=== PATIENT | female | born 1985 | race Caucasian/White ===

== ENCOUNTER 2017-01-28 06:12 | Inpatient (IN) | payer OTHER ==
[2017-01-28] VITALS (16 sets, daily range): BP systolic 113–137; BP diastolic 57–86
[~2017-01-28] VITALS: Ht 167.6 cm; Wt 99.0 kg
[2017-01-28] MEDS ORDERED: PRENTAB9 PO (07:15)
[2017-01-28] MEDS ORDERED: ZYRT10CA PO (07:15)
[2017-01-28 07:23] LABS: MEAN CORPUSCULAR HEMOGLOBIN 33.2 pg (27.0-33.0); MEAN CORPUSCULAR VOLUME 94.9 fl (80.0-96.0); RED CELL DISTRIBUTION WIDTH 13.3 % (11.5-14.5); WHITE BLOOD COUNT 9.2 K/mm3 (4.0-10.0)
[2017-01-28] MEDS ORDERED: miSOPROStol 25 MCG 1/4 TAB (S0191) PV ONE (09:15)
--- NOTE | 2017-01-28 09:37 | HPEPDOC ---
Obstetrical History & Physical General Date of Admission Jan 28, 2017 at 06:12 History of Present Illness 31 yo G1 presents to L&D @ 41+0 for scheduled IOL d/t pending post-dates. Denies DFM, LOF, CTX and VB. GBS-negative from [id number]. Chief Complaint: Induction of labor Information Provided By: Patient Age: 31 : 1 Term: 0 Pre-term: 0 Abortions: 0 Livin Care Care: Good Care Number of Visits: 16 Dating Final EDC: Jan 21, 2017 Final EDC for Daily Update: Jan 21, 2017 Final EDC by: LMP LMP: Apr 16, 2016 1st Trimester Date: Jun 23, 2016 Weeks + Days: 9.5 Estimated Date of Confinement: Jan 21, 2017 EGA at Admission: 41.0 Antepartum Course Diagnos(e)s 1. Rh negative- Rhogam given 27OCT2016 2. Transfer in @ 37 wks 3. 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 Past Medical History Medical History DENIES Surgical History: [place] teeth (2010) Family History Significant Family History: No pertinent family hx Social History Marital Status: Family situation: Spouse/partner home Psychosocial History: No pertinent psych hx * Smoker: non-smoker Alcohol: Denies Drugs: denies Abuse Violence Screening Have you been hit/kicked/slapp: No Have you been sexually assault: No Imunizations Tdap status: current ([id number]) Allergies Coded Allergies: Cefaclor (Verified Allergy, Mild, 01/28/17) RASH ENVIROMENTAL (Verified Allergy, Unknown, 01/28/17) pet hair & grass Medications Scheduled Cetirizine HCl (Zyrtec Allergy) 10 Mg Cap, 10 MG PO DAILY Multivitamins/ ( 27-0.8 mg) 1 Tab Tab, 1 TAB PO DAILY Physical Examination Physical Examination GENERAL: A&O x 3 BREAST: Gravid ABDOMEN: Gravid and non-tender to touch FETUS: VTX by [place] and SVE and US [id number] HEART RATE: RRR, no m/r/g LUNGS: CTA EXTREMITIES: No edema. No clonus. DTRs +1 EFW- 3900 grams SVE- closed/thick/high Laboratory Data 24H LABS Laboratory Tests 2 01/28/17 06:17: Serology Scanned Report Hepatitis B Testing 01/28/17 07:06: CBC/BMP Laboratory Tests 01/28/17 07:06 Red Blood Count 3.85 L, Mean Corpuscular Volume 94.9, Mean Corpuscular Hemoglobin 33.2 H, Mean Corpuscular Hemoglobin Concent 35.0, Red Cell Distribution Width 13.3 Pertinent Laboratoy Data Blood Type: O- RBC Antibody Screen: Positive HIV: Negative Hepatitis B: Negative Hepatitis C: Negative Rapid Plasma Reagin: Nonreactive Rubella: Immune Chlamydia/Gonorrhea: Negative Group B Streptococcus: Negative Glucose Tolerance Test: 101 Anatomy Ultrasound Ultrasound Date: Sep 03, 2016 Placenta Location: Posterior Normal Anatomy: Yes Placenta Previa: Yes Estimated Weight (grams): 353 Other Ultrasounds 08OCT2016 - Assessment of placenta previq- Placenta 1.2 cm from os. 900 grams/ 67% Steroid Therapy Steroid Therapy: No Vaginal Examination Dilation: None Effacement: 0-30% Station: -3 Cervical Consistency: Firm Cervical Position: Posterior Presentation: Cephalic presentation Assessment Heart Rate (FHR): 130 Variability: Moderate Accelerations: Positive Decelerations: None Tocometer Contractions: No Strength: resting tone palp/soft Multi-drug resistant Organism: No history of MDRO Assessment/Plan Assessment 31 yo G1 presents to L&D @ 41+0, unfavorable cervix, CAT I FHR tracing. GBS negative. Plan Admit and orient. Worm Picker and consent. Diet: regular GBS negative IV and labs per unit protocol. Counseled on Pitocin and induction of labor Counseled on cervical ripening LR 1000 ml bolus, then 125 ml/hr once in active labor or prior to epidural placement Anticipate C-S as appropriate. MARIA DEL CARMEN BOYER CNM Jan 28, 2017 09:37
--- NOTE | 2017-01-28 11:27 | IPNPDOC ---
Text Note Date of Service The patient was seen on 01/28/17. NOTE [id number] @ 1124 31 yo G1 @ 41+0 here for IOL. S: resting in bed on her right side. Comfortable. Spouse is at bedside O: VS- WNL, afebrile FHR- 135, moderate, + accels, no decels CTX- irregular > 8 min apart(pt is not feeling) SVE- closed/thick/-3 25 mcg cytotec placed A: 31 you G1 @ 41+0. CAT I FHR tracing, no cervical change P: continue to monitor and assess, reassess in 4 hours or prn, CFM for the next 60 min, then per policy VS,Fishbone, I+O VS, Fishbone, I+O Laboratory Tests 01/28/17 07:06 Red Blood Count 3.85 L, Mean Corpuscular Volume 94.9, Mean Corpuscular Hemoglobin 33.2 H, Mean Corpuscular Hemoglobin Concent 35.0, Red Cell Distribution Width 13.3 Vital Signs Date Time Temp Pulse Resp B/P (MAP) Pulse Ox O2 Delivery O2 Flow Rate FiO2 01/28/17 09:19 98.6 62 18 119/74 (89) MARIA DEL CARMEN BOYER CNM Jan 28, 2017 11:27
--- NOTE | 2017-01-28 12:09 | REP ---
LIMITED OB ULTRASOUND: Limited OB ultrasound performed utilizing transabdominal and endovaginal technique. There is a single living intrauterine gestation. Estimated gestational age is unknown. There are no prior studies for comparison. heart rate of intrauterine fetus is 126 beats per minute. The amniotic fluid appears within normal limits with SADI 19.8. S/D ratio 2.04. RI 0.51. position is vertex. Transvaginal images shows cervical length 5.5 cm. There is no funneling. Placenta is posterior with no previa or abruption. IMPRESSION: Normal cervical length 5.5 cm with no placenta previa. Signed by Pa Cristobal MD 01/28/2017 05:55 P
[2017-01-28] MEDS ORDERED: OXYTOCIN 30 UNITS IN 0.9% NaCl 500ML IV BAG (J2590) As Ordered ONE (16:41)
--- NOTE | 2017-01-28 16:44 | IPNPDOC ---
Text Note Date of Service The patient was seen on 01/28/17. NOTE [id number] @ 1639 31 yo G1 @ 41+0 here for IOL. S: resting in bed on her left side. Comfortable, but feeling CTXs. Spouse is at bedside O: VS- WNL, afebrile FHR- 135, moderate, + accels, no decels CTX- Q 3-5 min, lasting < 90 sec, palpated as mild, SVE- fingertip(ext os, internal os unkn)/thick/-3, ant/firm/vtx Attempted to place cook balloon, unsuccessful A: 31 you G1 @ 41+0. CAT I FHR tracing, minimal cervical change P: continue to monitor and assess, reassess in 2 hours or prn, initiate pitocin IOL, titrate pitocin per unit protocol, reg diet prior to initiating pitocin VS,Fishbone, I+O VS, Fishbone, I+O Laboratory Tests 01/28/17 07:06 Red Blood Count 3.85 L, Mean Corpuscular Volume 94.9, Mean Corpuscular Hemoglobin 33.2 H, Mean Corpuscular Hemoglobin Concent 35.0, Red Cell Distribution Width 13.3 Vital Signs Date Time Temp Pulse Resp B/P (MAP) Pulse Ox O2 Delivery O2 Flow Rate FiO2 01/28/17 14:34 98.5 66 18 119/67 (84) MARIA DEL CARMEN BOYER CNM Jan 28, 2017 16:43
[2017-01-28] MEDS ORDERED: OXYTOCIN DRIP 30 UNITS in APPROPRIATE DILUENT 1 EA IV SCH (17:30)
--- NOTE | 2017-01-28 20:50 | IPNPDOC ---
Text Note Date of Service The patient was seen on 01/28/17. NOTE SBAR from SPENCER Durán at 1930. Chart reviewed. SROM at 1900,clr. NST Cat 1, pit at 6 mu/min, reg ctx's but not in signif pain yet Cx /-2/vtx well applied doing well, recheck in ~4 hrs,sooner prn. Sessions VS,Frank, I+O VSFrank I+O Laboratory Tests 01/28/17 07:06 Red Blood Count 3.85 L, Mean Corpuscular Volume 94.9, Mean Corpuscular Hemoglobin 33.2 H, Mean Corpuscular Hemoglobin Concent 35.0, Red Cell Distribution Width 13.3 Vital Signs Date Time Temp Pulse Resp B/P (MAP) Pulse Ox O2 Delivery O2 Flow Rate FiO2 01/28/17 17:38 99.8 18 01/28/17 17:22 65 123/77 (92) SESSIONS,CHASTITY Butcher MD Jan 28, 2017 20:50
[2017-01-29] VITALS (40 sets, daily range): BP systolic 102–145; BP diastolic 55–92
--- NOTE | 2017-01-29 01:22 | IPNPDOC ---
Text Note Date of Service The patient was seen on 01/29/17. NOTE Pain 10/12 Pit at 14mu/min NST Cat 1,reg ctx's Cx unchanged Plan on IUPC at next check in ~4 hrs if no signif change, cont pitocin Sessions VS,Frank, I+O VS, Frank I+O Laboratory Tests 01/28/17 07:06 Red Blood Count 3.85 L, Mean Corpuscular Volume 94.9, Mean Corpuscular Hemoglobin 33.2 H, Mean Corpuscular Hemoglobin Concent 35.0, Red Cell Distribution Width 13.3 Vital Signs Date Time Temp Pulse Resp B/P (MAP) Pulse Ox O2 Delivery O2 Flow Rate FiO2 01/28/17 22:08 63 18 116/66 (83) 01/28/17 17:38 99.8 I&O- Last 24 Hours up to 6 AM 01/29/17 06:00 Output Total 500 ml Balance -500 ml SESSIONS,CHASTITY Butcher MD Jan 29, 2017 01:22
[2017-01-29] MEDS ORDERED: ONDANSETRON 4MG/2ML VIAL (J2405) IV PRN ×4 (04:15→18:15)
--- NOTE | 2017-01-29 06:20 | IPNPDOC ---
Text Note Date of Service The patient was seen on 01/29/17. NOTE NST Cat 1, rare Cat2 (decr'd randi and a few early decels), reg painful ctx's, feeling pressure Cx 3-4/90/-1/vtx well applied Pit at 16 mu/min Doing well. Almost active labor. SBAR to Dr Mckeon at 0730. Sessions VSFrank, I+O VSFrank I+O Laboratory Tests 01/28/17 07:06 Red Blood Count 3.85 L, Mean Corpuscular Volume 94.9, Mean Corpuscular Hemoglobin 33.2 H, Mean Corpuscular Hemoglobin Concent 35.0, Red Cell Distribution Width 13.3 Vital Signs Date Time Temp Pulse Resp B/P (MAP) Pulse Ox O2 Delivery O2 Flow Rate FiO2 01/28/17 22:08 63 18 116/66 (83) 01/28/17 17:38 99.8 I&O- Last 24 Hours up to 6 AM 01/29/17 06:00 Output Total 1050 ml Balance -1050 ml SESSIONS,CHASTITY Butcher MD Jan 29, 2017 06:20
[2017-01-29] MEDS ORDERED: FENTANYL 2MCG/ML ROPIVACAINE 0.2% IN 0.9% NACL 200ML IVBAG As Ordered ONE (07:12)
[2017-01-29] MEDS ORDERED: NALOXONE INJ 0.4 MG/1 ML VIAL (J2310) IV PRN (08:45)
[2017-01-29] MEDS: FENTANYL/ROPIVACAINE/NACL BAG 200 ML EPIDURAL SCH (08:45)
[2017-01-29] MEDS ORDERED: LACTATED RINGER'S 1000 ML IV PRN (08:45)
[2017-01-29] MEDS ORDERED: EPIDURAL/PCA KEYS XX PRN (08:45)
[2017-01-29] MEDS ORDERED: EPIDURAL COMMENT XX SCH (08:45)
[2017-01-29] MEDS ORDERED: diphenhydrAMINE INJ 50MG/ML VIAL (J1200) IV PRN (08:45)
[2017-01-29] MEDS ORDERED: ePHEDrine SULFATE 25 MG/5 ML(5MG/ML) SYRINGE IV PRN (08:45)
[2017-01-29] MEDS ORDERED: REFRIGERATOR IV KEYS XX PRN (08:45)
[2017-01-29] MEDS: LR 1,000 ML IV SCH ×4 (10:01→20:39)
[2017-01-29] MEDS ORDERED: ACETAMINOPHEN 500 MG TAB PO PRN (10:15)
[2017-01-29 15:27] LABS: MEAN CORPUSCULAR HEMOGLOBIN 33.1 pg (27.0-33.0); MEAN CORPUSCULAR HGB CONC 34.9 g/dl (32.0-36.5); MEAN CORPUSCULAR VOLUME 94.9 fl (80.0-96.0); RED CELL DISTRIBUTION WIDTH 13.3 % (11.5-14.5); WHITE BLOOD COUNT 23.5 K/mm3 (4.0-10.0)
[2017-01-29] MEDS ORDERED: AZITHROMYCIN INJ 500MG VIAL (J0456) As Ordered ONE (15:59)
[2017-01-29] MEDS ORDERED: AZITHROMYCIN INJ 500 MG, VIAL MATE ADAPTER 1 EACH in D5W 250 ML IV ONE (16:00)
[2017-01-29] MEDS ORDERED: BICITRA 30ML SOLN UDC PO ONE (16:00)
[2017-01-29] MEDS ORDERED: CLINDAMYCIN 900 MG/50 ML PREMIX BAG As Ordered ONE (16:06)
[2017-01-29] MEDS ORDERED: LIDOCAINE 2% W/EPIN INJ 20ML **PRES FREE As Ordered ONE ×2 (16:09→16:42)
[2017-01-29] MEDS ORDERED: OXYTOCIN INJ 10 UNITS/ML VIAL (J2590) As Ordered ONE (16:10)
[2017-01-29] MEDS ORDERED: CLINDAMYCIN 900 MG in APPROPRIATE DILUENT 1 EA IV ONE (16:15)
[2017-01-29] MEDS ORDERED: GENTAMICIN SULF INJ 80MG/2ML VIAL (J1580) IP ONE (16:15)
[2017-01-29] MEDS ORDERED: GENTAMICIN 450 MG in D5W 100 ML IV ONE (16:30)
[2017-01-29] MEDS ORDERED: MORPHINE PRES-FREE INJ 10 MG/10 ML VIAL (J2274) As Ordered ONE (17:26)
[2017-01-29 17:36] LABS: CORD GAS ABE V -6.2; CORD GAS HCO3 V 18.4 MEQ/L; CORD GAS O2 SAT V 74.9 %; CORD GAS PCO2 V 34.1 mmHg; CORD GAS PH V 7.349 UNITS; CORD GAS PO2 V 33.4 mmHg; CORD GAS TCO2 V 19.4 MEQ/L
[2017-01-29 17:37] LABS: CORD GAS HCO3 A 23.2 MEQ/L; CORD GAS O2 SAT A 53.8 %; CORD GAS PCO2 A 50.6 mmHg; CORD GAS PH A 7.28 UNITS; CORD GAS PO2 A 24.2 mmHg; CORD GAS SBC A 20.1 MEQ/L; CORD GAS TCO2 A 24.8 MEQ/L
[2017-01-29] MEDS ORDERED: KETOROLAC 30 MG/ML VIAL (J1885) IV SCH (18:00)
[2017-01-29] MEDS ORDERED: PERCOCET 5MG/325MG TAB PO PRN (18:00)
[2017-01-29] MEDS ORDERED: MOM 30ML SUSPENSION UDC PO PRN (18:00)
[2017-01-29] MEDS ORDERED: MEASLES,MUMPS,RUBELLA VACCINE INJ (MMR-II) (90707) SC SCH (18:00)
[2017-01-29] MEDS ORDERED: PROMETHAZINE 25 MG TAB PO PRN (18:00)
[2017-01-29] MEDS ORDERED: RHOGAM 300 MCG (1500 IU) INJ (J2790) IM SCH (18:00)
[2017-01-29] MEDS ORDERED: fentaNYL 100 MCG/2 ML INJECTION (J3010) IV PRN (18:15)
[2017-01-29] MEDS ORDERED: NALBUPHINE HCL 10 MG/ML AMP (J2300) IV PRN (18:15)
[2017-01-29] MEDS ORDERED: KETOROLAC 30 MG/ML VIAL (J1885) IV PRN (18:15)
[2017-01-29 18:40] LABS: MEAN CORPUSCULAR HEMOGLOBIN 33.3 pg (27.0-33.0); MEAN CORPUSCULAR HGB CONC 34.9 g/dl (32.0-36.5); MEAN CORPUSCULAR VOLUME 95.5 fl (80.0-96.0); RED CELL DISTRIBUTION WIDTH 13.4 % (11.5-14.5); WHITE BLOOD COUNT 22.1 K/mm3 (4.0-10.0)
[2017-01-29] MEDS: KETOROLAC 30 MG/ML VIAL (J1885) IV SCH (20:40)
[2017-01-29] MEDS: DOCUSATE SODIUM 100 MG CAP PO SCH (20:53)
[2017-01-30] MEDS: KETOROLAC 30 MG/ML VIAL (J1885) IV SCH ×3 (02:34→14:12)
[2017-01-30 02:50] VITALS: BP 118/76
[2017-01-30] MEDS: FENTANYL/ROPIVACAINE/NACL BAG 200 ML EPIDURAL SCH (04:45)
[2017-01-30 06:20] LABS: MEAN CORPUSCULAR HEMOGLOBIN 33.2 pg (27.0-33.0); MEAN CORPUSCULAR HGB CONC 34.5 g/dl (32.0-36.5); MEAN CORPUSCULAR VOLUME 96.2 fl (80.0-96.0); WHITE BLOOD COUNT 25.8 K/mm3 (4.0-10.0)
[2017-01-30 06:34] VITALS: BP 119/61
[2017-01-30] MEDS: DOCUSATE SODIUM 100 MG CAP PO SCH ×2 (09:14→20:21)
[2017-01-30] MEDS: PRENATAL VITAMINS CHEWABLE TABLET PO SCH (09:14)
[2017-01-30] MEDS: LR 1,000 ML IV SCH ×2 (09:49→17:49)
[2017-01-30 10:38] VITALS: BP 119/61
[2017-01-30 14:36] VITALS: BP 109/59
[2017-01-30 18:38] VITALS: BP 117/65
[2017-01-30] MEDS: PERCOCET 5MG/325MG TAB PO PRN (20:22)
[2017-01-31] MEDS: LR 1,000 ML IV SCH (01:49)
[2017-01-31 06:00] VITALS: BP 119/65
[2017-01-31] MEDS: PERCOCET 5MG/325MG TAB PO PRN (06:13)
[2017-01-31] MEDS: PRENATAL VITAMINS CHEWABLE TABLET PO SCH (07:55)
[2017-01-31] MEDS: DOCUSATE SODIUM 100 MG CAP PO SCH (07:55)
[2017-01-31] MEDS ORDERED: COLA100C5 PO (09:15)
[2017-01-31] MEDS ORDERED: OXYC1TAB23 PO ×2 (09:16→09:17)
[2017-01-31] MEDS ORDERED: ACET50TA PO (09:16)
--- NOTE | 2017-01-31 09:29 | RO ---
DATE OF PROCEDURE: 01/29/2017 PREPROCEDURE DIAGNOSES: 1. Remote from delivery. 2. Non-reassuring heart rate status. POSTPROCEDURE DIAGNOSES: 1. Remote from delivery. 2. Non-reassuring heart rate status. PROCEDURE: Primary low transverse section SURGEON: Hunter Mckeon MD INDUSTRIAL GAS SERVICER: SPENCER Erickson ANESTHESIA: Epidural, Dr. Rivas. Noted 's 9, 9. Weight 4378 grams. Male . IV FLUID: 1500 mL. URINE OUTPUT: 100 mL. ESTIMATED BLOOD LOSS: 800 mL. COMPLICATIONS: None, other than previously noted. INDICATION FOR SURGERY: Please see previous note. Also, noted non-reassuring heart rate tracing with continual/persistent category 2 tracing with periods of minimal variability with uterine resuscitation noted with minimal change. Pitocin had been also discontinued with minimal change noted. Last vaginal exam demonstrated 5 cm dilated, remote from delivery. The risks/benefits/alternatives/indications were reviewed with the patient. Informed consent was obtained. The patient was taken to the operating room where epidural anesthesia was found to be adequate. She was then prepped and draped in a normal sterile fashion in a left lateral tilt after a Hall catheter was placed. After a time out was performed, a Pfannenstiel skin incision was made with a scalpel and carried through to the underlying layer of the fascia. The fascia was incised in the midline and extended laterally with Arechiga scissors. The superior aspect of the fascial incision was grasped with Abdi clamps times two , elevating the underlying rectus muscle, dissected off bluntly with Bovie and Arechiga scissors. In a similar fashion, attention was then turned to the inferior aspect, grasped with Abdi clamps times two, and the rectus muscle again dissected off bluntly as well as with Bovie. Rectus muscles were then in the midline with the assistance of mosquito clamps times two. Peritoneum was identified, tented up and then digitally the peritoneal incision was extended horizontally and superiorly with excellent visualization of the bladder. Bladder blade was then introduced into the abdomen without incident. The vesicouterine peritoneum was then visualized, picked up and entered sharply with Metzenbaum scissors and extended laterally creating a bladder flap. After the bladder blade was reinserted, the lower uterine segment was incised in a transverse fashion without complication. The amniotic was artificially ruptured productive of clear fluid. The uterine incision was then extended in a superolateral fashion without complication. Bladder blade was removed. The infant was found to be deeply engaged in the pelvis in the transverse presentation. After the infant delivered through the hysterotomy, the cord was doubly clamped and cut and handed off to the waiting intensive-care unit (NICU) team. Cord gases were then obtained, arterial and venous respectively. Cord blood was then also obtained. The placenta was then delivered without complication and pitocin was running in routine fashion. The uterus was then exteriorized and cleared of all clots and debris and noticed an extension into the very thin lower uterine segment extending down approximately 2 cm, which was actively bleeding. After excellent visualization was obtained, hysterotomy was closed with #0 Monocryl in a running locked fashion with a second #0 Monocryl used for imbrication. Three figure-of-8 sutures of #0 Monocryl were used in the left aspect of the hysterotomy for hemostasis. Also along the extension, this was noted approximately 1.5 cm on the right aspect of the hysterotomy. This was closed with #0 Monocryl in a running locked fashion. Hemostasis was also noted. Bladder remained with utilization of bladder flap, remote from the surgical site. After hemostasis was obtained, the abdomen was irrigated in a routine fashion and the gutters were observed. Attention was then returned to the hysterotomy and again noted to be hemostatic. 3 grams of Zack were then placed in a routine fashion per manufacturers guidelines without incident. The fascia was then reapproximated with #0 Vicryl in a running fashion. Prior to this, the peritoneum was closed with #3-0 Vicryl in a running fashion. Subcutaneous layers were closed with two layers in a running fashion with #3-0 Vicryl. The skin was then closed with #4-0 Monocryl in a subcuticular fashion. The surgical site was then covered with Steri-Strips and a pressure dressing obtained. A uterine vaginal sweep demonstrated no retained objects as well as all clots and debris removed. Bimanual exam performed with good tone and minimal vaginal bleeding. Sponge, laps and needle counts were correct times two. Patient was taken to the recovery room in stable condition. 500 of azithromycin and 900 of clindamycin and 450 of gentamicin were ordered and were running in a routine fashion. Peyton Mckeon OB-FAC ENGINEER LAUREN
--- NOTE | 2017-01-31 20:45 | DSES ---
DATE OF ADMISSION: 01/28/2017 DATE OF DISCHARGE: 01/31/2017 This lady is a 31-year-old female, 1 now para 1 who was at 41 weeks of gestation for scheduled induction of labor. Her risk factors are that she was a transfer in at 37 weeks, she is Rh negative, received RhoGAM, had some excessive weight gain. On admission for induction of labor, she had a very unfavorable cervix. She was counseled for cervical ripening to be followed by Jennifer in active labor. She delivered a live male 9 pounds 10 ounces, 4378 grams, scores of 9 and 9 at 1 and 5 minutes respectively. Arterial pH 7.28, base excess -4.0, venous pH 7.34, base excess -6.2. Today, on her second day post we discussed phlebitis, cystitis, mastitis, endometritis, cellulitis, diet, exercise, pain management, perineal, breast and wound care. She is presently normocephalic, atraumatic. Neck full range of motion. Pupils equal and reactive to light. Distal pulses symmetric. No evidence of DVT, PE or superficial phlebitis. Chest is clear bilaterally to the bases. No wheezes or rhonchi. No CVA tenderness. Uterus two below. Four quadrant bowel sounds are noted. Incision is clean and dry. She has no rashes, lesions or pruritus. No arthralgia, myalgia. No complaints of cough, wheeze, shortness of breath or dyspnea on exertion. Not bleeding. Neurologically complete. No incontinency, urgency or frequency. No nausea, vomiting, diarrhea or constipation. No diabetic issues. Family history noncontributory. She does not smoke, drink or abuse drugs. She is . There is no domestic violence. On discharge her hemoglobin 9.1, hematocrit 26.2 and platelets are 141. Her blood pressure is 119/65, respirations 18, pulse 91 and temperature 98.9. In summary we have a term gestation post dates, induction of labor, nonreassuring heart remote from delivery, delivered by primary section, a healthy male. She has a 2-week incision check and a 6-week check and medications will be dispensed at discharge.
--- NOTE | 2017-02-02 15:42 | IPN ---
DATE: 01/29/2017 This patient has requested circumcision of their male infant. After discussing the risks and benefits of circumcision, the medical and nonmedical indications, the penile block and aftercare, expressed understanding of the penile block and aftercare. All questions were answered. Signed and witnessed the consent form. We await the clearance by the media services coordinator.
== END 2017-01-31 10:20 | disposition home or self-care (01) | DRG 766 ==
LOC: M LDI 06:12 → M OBS 01-29 19:55
PROVIDERS: ADMIT Obstetrics & Gynecology; ATTEND Obstetrics & Gynecology
PROC: 3E0DXGC Introduction of Other Therapeutic Substance into Mouth and Pharynx, External Approach (ICD-10-PCS; 2017-01-28)
PROC: 10D00Z1 Extraction of Products of Conception, Low, Open Approach (ICD-10-PCS; principal; 2017-01-29)
PROC: 30233S1 Transfusion of Nonautologous Globulin into Peripheral Vein, Percutaneous Approach (ICD-10-PCS; 2017-01-30)
DX: O48.0 Post-term pregnancy (principal); Z37.0 Single live birth; Z3A.41 41 weeks gestation of pregnancy; O26.03 Excessive weight gain in pregnancy, third trimester; Z88.1 Allergy status to other antibiotic agents; J30.1 Allergic rhinitis due to pollen; J30.81 Allergic rhinitis due to animal (cat) (dog) hair and dander; Z79.899 Other long term (current) drug therapy; O76 Abnormality in fetal heart rate and rhythm complicating labor and delivery; O99.52 Diseases of the respiratory system complicating childbirth

== ENCOUNTER 2019-01-23 05:29 | Inpatient (IN) | payer OTHER ==
[~2019-01-23] VITALS: Ht 165.1 cm; Wt 90.8 kg
[2019-01-23] VITALS (8 sets, daily range): BP systolic 101–116; BP diastolic 54–63
[~2019-01-23 05:29] MED LIST: CETI10CA2 PO; CLAR10CA3 PO; COLA100C5 PO; FERR325T3 PO; MAPA500T2 PO; OXYC1TAB23 PO; PRENTAB9 PO; ZYRT10CA PO
[2019-01-23] MEDS ORDERED: BICITRA 30ML SOLN UDC As Ordered ONE (05:48)
[2019-01-23] MEDS ORDERED: ceFAZolin 2 GM/D5W 50 ML IV BAG (J0690 PER 500MG) As Ordered ONE (05:49)
[2019-01-23] MEDS ORDERED: LACTATED RINGER'S 1000 ML IV STA (05:51)
[2019-01-23] MEDS ORDERED: LR 1,000 ML IV SCH ×2 (05:51→06:00)
[2019-01-23] MEDS ORDERED: LR 1,000 ML IV ONE (06:00)
[2019-01-23] MEDS ORDERED: BICITRA 30ML SOLN UDC PO ONE (06:00)
[2019-01-23 06:29] LABS: HEMATOCRIT 33.6 % (36.0-47.0); HEMOGLOBIN 11.5 g/dl (12.0-15.5); MEAN CORPUSCULAR HEMOGLOBIN 32.9 pg (27.0-33.0); MEAN CORPUSCULAR HGB CONC 34.2 g/dl (32.0-36.5); PLATELET COUNT, AUTOMATED 156 10^3/uL (150-450); WHITE BLOOD COUNT 8.2 10^3/uL (4.0-10.0)
[2019-01-23] MEDS ORDERED: ONDANSETRON 4MG/2ML VIAL (J2405) IV PRN ×2 (07:50→09:30)
[2019-01-23] MEDS ORDERED: diphenhydrAMINE INJ 50MG/ML VIAL (J1200) IV PRN (07:50)
[2019-01-23] MEDS ORDERED: METOCLOPRAMIDE INJ 10MG/2ML VIAL (J2765) IV PRN (07:50)
[2019-01-23] MEDS ORDERED: NALOXONE INJ 0.4 MG/1 ML VIAL (J2310) IV PRN ×2 (07:50)
[2019-01-23] MEDS ORDERED: NALBUPHINE HCL 10 MG/ML AMP (J2300) IV PRN ×2 (07:50→09:30)
[2019-01-23] MEDS ORDERED: ONDANSETRON 4MG/2ML VIAL (J2405) As Ordered ONE (08:03)
[2019-01-23] MEDS ORDERED: ePHEDrine SULFATE 25 MG/5 ML(5MG/ML) SYRINGE As Ordered ONE (08:03)
[2019-01-23] MEDS ORDERED: OXYTOCIN INJ 10 UNITS/ML VIAL (J2590) As Ordered ONE (08:03)
[2019-01-23] MEDS ORDERED: dexameTHASONE 4 MG/ML 1ML VIAL (J1100) As Ordered ONE (08:03)
[2019-01-23] MEDS ORDERED: MORPHINE PRES-FREE INJ 10 MG/10 ML VIAL (J2274) As Ordered ONE (08:04)
[2019-01-23] MEDS ORDERED: KETOROLAC 60 MG/2 ML VIAL (J1885) As Ordered ONE (08:29)
[2019-01-23] MEDS ORDERED: OXYTOCIN DRIP 30 UNITS in APPROPRIATE DILUENT 1 EA IV SCH (09:07)
[2019-01-23] MEDS ORDERED: RHOGAM 300 MCG (1500 IU) INJ (J2790) IM SCH (09:15)
[2019-01-23] MEDS ORDERED: PROMETHAZINE 25 MG TAB PO PRN (09:15)
[2019-01-23] MEDS ORDERED: PERCOCET 5MG/325MG TAB PO PRN (09:15)
[2019-01-23] MEDS ORDERED: MEASLES,MUMPS,RUBELLA VACCINE INJ (MMR-II) (90707) SC SCH (09:15)
[2019-01-23] MEDS ORDERED: KETOROLAC 30 MG/ML VIAL (J1885) IV PRN (09:30)
[2019-01-23] MEDS ORDERED: fentaNYL 100 MCG/2 ML INJECTION (J3010) IV PRN (09:30)
[2019-01-23] MEDS: PRENATAL VITAMINS CHEWABLE TABLET PO SCH (10:22)
[2019-01-23] MEDS: KETOROLAC 30 MG/ML VIAL (J1885) IV SCH ×2 (15:46→21:05)
[2019-01-23] MEDS: DOCUSATE SODIUM 100 MG CAP PO PRN (21:05)
[2019-01-24 02:07] VITALS: BP 96/53
[2019-01-24] MEDS: KETOROLAC 30 MG/ML VIAL (J1885) IV SCH (02:54)
[2019-01-24 06:42] LABS: HEMOGLOBIN 9.6 g/dl (12.0-15.5); MEAN CORPUSCULAR HEMOGLOBIN 32.4 pg (27.0-33.0); MEAN CORPUSCULAR HGB CONC 33.1 g/dl (32.0-36.5); PLATELET COUNT, AUTOMATED 131 10^3/uL (150-450); RED BLOOD COUNT 2.96 10^6/uL (4.00-5.40); WHITE BLOOD COUNT 9.1 10^3/uL (4.0-10.0)
[2019-01-24 06:50] VITALS: BP 104/56
--- NOTE | 2019-01-24 07:27 | IPNPDOC ---
Progress Note Date of Service: Jan 24, 2019 Progress Note Kamilla is a 33 yo G2 now P2 who is POD#1 s/p an uncomplicated scheduled ERLTCS on [id number]. She is recovering on the rodrigues. No acute events overnight. Ms. Pendleton reports feeling well this morning. She is ambulating, tolerating a regular diet, and has minimal pain and minimal lochia. Her vega catheter was just removed this morning. She denies any fevers/chills, SOB, chest pain, n/v, or pain not relieved by PO medications. Vitals - VSS, afebrile, normotensive, non tachycardic General - AAOX3, sitting up in bed , NAD Abdomen - Fundus firm at U-2. No fundal tenderness. Bandage removed from incision. Incision clean/dry/intact. Steri strips in place. No tenderness to palpation. Extremities - No edema UO - Excellent Labs: Pre op H/H 11.5/33.6 --> Post op H/H this AM 9.6/29.0 Ms. Pendleton is doing well and is making an appropriate post op / recovery. Monitor for DTV today and continue to encourage ambulation, , and IS use. Continue routine post op care. Anticipate discharge home tomorrow. All patient questions answered. Nadya Ocasio DO VS, I&O, 24H, Frank Vital Signs/I&O Vital Signs Date Time Temp Pulse Resp B/P (MAP) Pulse Ox O2 Delivery O2 Flow Rate FiO2 01/24/19 06:50 98.6 63 19 104/56 (72) 97 I&O- Last 24 Hours up to 6 AM 01/24/19 06:00 Intake Total 1400 ml Output Total 1500 ml Balance -100 ml Laboratory Data 24H LABS Laboratory Tests 2 01/24/19 06:24: Nucleated Red Blood Cells % (auto) 0.0 CBC/BMP Laboratory Tests 01/24/19 06:24 Red Blood Count 2.96 L, Mean Corpuscular Volume 98.0 H, Mean Corpuscular Hemoglobin 32.4, Mean Corpuscular Hemoglobin Concent 33.1, Red Cell Distribution Width 13.8 NADYA OCASIO DO Jan 24, 2019 07:27
[2019-01-24 10:00] VITALS: BP 107/57
[2019-01-24] MEDS: IBUPROFEN 800 MG TAB PO SCH ×2 (12:06→18:43)
[2019-01-24] MEDS: PRENATAL VITAMINS CHEWABLE TABLET PO SCH (12:07)
[2019-01-24] MEDS: PERCOCET 5MG/325MG TAB PO PRN ×2 (12:07→16:34)
[2019-01-24 14:00] VITALS: BP 109/81
--- NOTE | 2019-01-24 16:39 | RO ---
DATE OF PROCEDURE: 01/23/2019 PREPROCEDURE DIAGNOSIS: History of section and no desire for trial of labor after (TOLAC). POSTPROCEDURE DIAGNOSIS: History of section and no desire for trial of labor after (TOLAC). PROCEDURE: Repeat low transverse section. SURGEON: Dr. Zac Levin MEASUREMENT OPERATOR: Dr. Shameka Guajardo ANESTHESIA: Spinal. IV FLUIDS: 1000 mL lactated Ringer's, 600 mL mixed with Pitocin. ESTIMATED BLOOD LOSS: 500 mL. URINE: 100 mL. ANTIBIOTICS: 2 grams of Ancef before incision. OPERATIVE FINDINGS: Viable baby girl found and delivered in cephalic presentation, weight 3710 grams or 8 pounds 3 ounces. scores 9 and 9. DESCRIPTION OF PROCEDURE: The risks, benefits, indications, and alternatives of the procedure were reviewed with the patient and informed consent was obtained. The patient was taken to the operating room where spinal anesthesia was obtained without difficulty. The patient was then placed in the dorsal lithotomy position. She was then prepped and draped in the usual sterile fashion. A Hall catheter was placed. A surgical time-out was then performed and the patient's identify and planned procedure were verified with the operative team. A Pfannenstiel skin incision was then made with a scalpel and carried through to the underlying layer of fascia using Bovie electrocautery. The fascia was then incised in the midline, and the fascial incision was extended laterally with Arechiga scissors. The superior aspect of the fascial incision was grasped with Abdi clamps, elevated, and the underlying rectus muscles were dissected off bluntly and with Arechiga scissors. The inferior aspect of the fascial incision was then grasped with Abdi clamps, elevated and the rectus muscles inferiorly were then dissected off in a similar fashion via blunt dissection and with Arechiga scissors. The peritoneum was then identified and entered digitally. The peritoneal incision was then extended superiorly, laterally and inferiorly. Good visualization of the bladder was seen. The bladder blade was then inserted into the abdomen. The vesicouterine peritoneum was then identified, entered sharply with the scalpel, and a bladder flap was then created digitally. The bladder blade was replaced. The lower uterine segment was then incised via a low transverse incision, and the uterine incision was extended bluntly. Clear fluid was noted upon entry into the uterus. The fetus was found in right occiput transverse (ROT) cephalic presentation. A Kiwi vacuum was then called for and opened on the field and was then placed on the head at the flexion point to assist with delivery due to the baby being not well engaged in the pelvis. There was one pop off but then the head delivered atraumatically and the Kiwi vacuum was removed and discarded off the field. The remainder of the baby was then delivered without difficulty. The was then dried and stimulated on the field and a bulb suction was used. The cord was then doubly clamped and cut, and the infant was then handed off to the awaiting pediatricians. The uterus was exteriorized and the placenta was delivered intact. The uterus was then cleared of all clots and debris. The uterine incision was then repaired with #0 Monocryl suture in a running fashion. A second layer of #0 Monocryl suture used to imbricate the hysterotomy in a vertical fashion. There was mild oozing bleeding in the midline that was controlled with multiple figure-of-8 sutures of #0 Monocryl. Inspection of the hysterotomy then revealed excellent hemostasis. The posterior cul-de-sac was then irrigated, and the uterus was returned to the abdomen. Again, inspection of the hysterotomy revealed excellent hemostasis. The paracolic gutters were inspected and cleared of all clots and debris. Again, final inspection of the hysterotomy revealed excellent hemostasis. The bladder blade was then removed from the abdomen. The peritoneum was then closed in a running layer of #3-0 Vicryl suture. The fascia was then closed with #0 Vicryl suture in a running fashion. The subcutaneous fat was then closed with #3-0 Vicryl suture in a running fashion. The skin was then closed with #4-0 Monocryl suture in a running fashion. Steri-Strips were then applied to the incision and a pressure dressing was applied. At the completion of the case, a manual exam was performed, which revealed good uterine tone and minimal vaginal bleeding. The patient tolerated the procedure well and was taken to the post-anesthesia care unit (PACU) in stable condition. LAUREN
[2019-01-24 18:00] VITALS: BP 105/60
[2019-01-24] MEDS: DOCUSATE SODIUM 100 MG CAP PO PRN (21:06)
[2019-01-24 22:00] VITALS: BP 105/53
[2019-01-25 02:00] VITALS: BP 106/55
[2019-01-25] MEDS: IBUPROFEN 800 MG TAB PO SCH (03:04)
[2019-01-25 06:00] VITALS: BP 110/57
[2019-01-25] MEDS: PRENATAL VITAMINS CHEWABLE TABLET PO SCH (08:21)
[2019-01-25] MEDS: PERCOCET 5MG/325MG TAB PO PRN (08:22)
--- NOTE | 2019-01-25 08:23 | DS.PDOC ---
Discharge Summary General Date of Admission Jan 23, 2019 at 05:29 Date of Discharge January 25, 2019 Discharge Summary HOSPITAL COURSE: Ms. Pendleton is a 33 yo G2 now P2 who underwent an uncomplicated scheduled ERLTCS on 23Jan2019. Her course has been unremarkable. On her day of discharge she met all appropriate discharge criteria. She was ambulating, voiding, tolerating a regular diet, had minimal lochia, and her pain was well controlled with PO pain medications. DISCHARGE MEDICATIONS: Please see below. ALLERGIES: Please see below. PHYSICAL EXAMINATION ON DISCHARGE: VITAL SIGNS: Please see below. GENERAL: AAOX3, laying in bed, NAD, pleasant and conversant ABDOMINAL EXAMINATION: Abdomen soft, nondistended. No tenderness to palpation. Fundus firm at U-2. No fundal tenderness. Incision well appearing and steri strips still in place. Incision clean/dry/intact. EXTREMITIES: No edema PSYCHIATRIC EXAMINATION: Affect appropriate LABORATORY DATA: Please see below. ACTIVITY: Pelvic rest for 6 weeks. No heavy lifting for 6 weeks DIET: Regular DISCHARGE PLAN: Discharge home DISPOSITION: .Discharge home on 25Jan2019 DISCHARGE INSTRUCTIONS: 1. Pelvic rest for 6weeks 2. No heavy lifting for 6 weeks ITEMS TO FOLLOWUP ON ON OUTPATIENT: 1. 2 week incision check DISCHARGE CONDITION: Stable TIME SPENT ON DISCHARGE: Greater than 20 minutes. Nadya Levin DO Vital Signs/I&Os Vital Signs Date Time Temp Pulse Resp B/P (MAP) Pulse Ox O2 Delivery O2 Flow Rate FiO2 01/25/19 06:00 98.0 66 18 110/57 (74) 01/24/19 06:50 97 I&O- Last 24 Hours up to 6 AM 01/25/19 05:59 Intake Total 900 ml Output Total 1300 ml Balance -400 ml Discharge Medications Scheduled Ferrous Sulfate (Ferrous Sulfate) 325 Mg Tablet.dr, 325 MG PO DAILY, (Reported) Loratadine (Claritin) 10 Mg Capsule, 10 MG PO DAILY, (Reported) No.137/Iron/Folic Acd ( Vitamin Tablet) 1 Tab Tab, 1 TAB PO DAILY, (Reported) Allergies Coded Allergies: ENVIROMENTAL (Verified Allergy, Unknown, 01/28/17) pet hair & grass cefaclor (Verified Allergy, Unknown, 01/16/19) NADYA LEVIN DO Jan 25, 2019 08:23
[2019-01-25] MEDS ORDERED: PERCOCET PO (08:25)
[2019-01-25] MEDS ORDERED: IBUP80TA PO (08:25)
== END 2019-01-25 11:20 | disposition home or self-care (01) | DRG 773 ==
LOC: M LDI 05:29 → M OBS 10:45
PROVIDERS: ADMIT Obstetrics & Gynecology; ATTEND Obstetrics & Gynecology
PROC: 10D00Z1 Extraction of Products of Conception, Low, Open Approach (ICD-10-PCS; principal; 2019-01-23 07:30)
DX: O34.211 Maternal care for low transverse scar from previous cesarean delivery (principal); Z3A.40 40 weeks gestation of pregnancy; Z37.0 Single live birth; O99.824 Streptococcus B carrier state complicating childbirth